=== PATIENT | female | born 1970 | race Caucasian/White ===

== ENCOUNTER 2017-10-03 18:15 | Emergency (ER) | payer OTHER ==
[~2017-10-03] VITALS: Ht 165.1 cm; Wt 84.0 kg
[~2017-10-03 18:15] MED LIST: BUPR150T3 PO; CYCL-36 PO; TRIM
[2017-10-03 18:19] VITALS: BP 174/101; PULSE 95; RESP 16; TEMP 98.3; O2SAT 99
[2017-10-03] MEDS ORDERED: AMLO2.5T PO (18:45)
[2017-10-03] MEDS ORDERED: NALT1TAB3 PO (18:45)
[2017-10-03] MEDS ORDERED: BACL10TA PO (18:45)
--- NOTE | 2017-10-03 18:46 | PD ---
HPI Chief Complaint: Headache Time Seen by Provider: 18:24 Travel History International Travel<30 days: No Contact w/Intl Traveler<30days: No Traveled to known affect area: No History of Present Illness HPI 47-year-old female complains of elevated blood pressure. Patient states that she has history of elevated blood pressure for the past few months. Patient has history of chronic back pain and thought that elbow blood pressure was secondary to that. Patient was seen by personal physician recently and was given prescription for amlodipine, unknown dosage. Patient started taking amlodipine about week and half ago. Patient states that she has dizziness intermittently for the past month however worse for the past 2 days. Patient complains of mild aching headache and anterior chest discomfort for the past month or so. Patient states that the headache and the dizziness and chest discomfort is worse after starting amlodipine. Patient contacted her physician and was advised to take half of dosage of amlodipine for the past 4 days. Patient states that the symptoms got better for the past 4 days. Patient contacted her physician and was advised to stop amlodipine and given prescription for lisinopril 10 mg daily. Patient has not started taking lisinopril yet. Patient states that the chest discomfort is pressure across anterior chest wall. Patient denies any pain radiation. Patient states that she has intermittent palpitation recently however the palpitation is better after she decrease her dosage of amlodipine. Patient denies any diaphoresis. Patient denies history of CAD. Patient denies history of diabetes, hyperlipidemia. Patient states that she has history of chronic back pain and took hydrocodone as needed in the past. PFSH Past Medical History Asthma: Yes Diminished Hearing: No Dilation and Curettage (D&C): Yes Past Surgical History Oral Surgery: Yes Social History Alcohol Use: No Tobacco Use: No Substance Use: No Allergies-Medications (Allergen,Severity, Reaction): Coded Allergies: nitrofurantoin (Verified Allergy, Unknown, 10/03/17) penicillin G (Unverified Allergy, Unknown, does not know, 10/03/17) Reported Meds & Prescriptions Reported Meds & Active Scripts Active Reported Bupropion Hcl Xl (Bupropion HCl) 150 Mg Tab 150 Mg PO DAILY [Trim 10] Flexeril (Cyclobenzaprine HCl) 10 Mg Tab 10 Mg PO TID Review of Systems General / Constitutional: No: Fever Eyes: No: Visual changes HENT: Positive: Headaches, Lightheadedness Cardiovascular: Positive: Chest Pain or Discomfort Respiratory: No: Shortness of Breath Gastrointestinal: No: Abdominal Pain Genitourinary: No: Dysuria Musculoskeletal: No: Pain Skin: No Rash Neurologic: No: Weakness Psychiatric: No: Depression Endocrine: No: Polydipsia Hematologic/Lymphatic: No: Easy Bruising Physical Exam Narrative GENERAL: Well-nourished, well-developed patient. SKIN: Focused skin assessment warm/dry. HEAD: Normocephalic. EYES: No scleral icterus. No injection or drainage. NECK: Supple, trachea midline. No JVD or lymphadenopathy. CARDIOVASCULAR: Regular rate and rhythm without murmurs, gallops, or rubs. RESPIRATORY: Breath sounds equal bilaterally. No accessory muscle use. GASTROINTESTINAL: Abdomen soft, non-tender, nondistended. MUSCULOSKELETAL: No cyanosis, or edema. BACK: Nontender without obvious deformity. No CVA tenderness. Neurologic exam normal. Data Data Last Documented VS Vital Signs Date Time Temp Pulse Resp B/P (MAP) Pulse Ox O2 Delivery O2 Flow Rate FiO2 10/03/17 18:19 98.3 95 16 174/101 (125) 99 MDM Medical Decision Making Medical Screen Exam Complete: Yes Emergency Medical Condition: Yes Differential Diagnosis Differential diagnosis including uncontrolled hypertension, hypertensive urgency , hypertensive crisis, side effect to medications. Narrative Course 47-year-old female with intermittent headache, dizziness, chest pressure, and elevated blood pressure. EKG shows sinus rhythm nonspecific ST-T wave change. Systolic Blood pressure in the 170s range. Diagnosis Primary Impression: Uncontrolled hypertension Patient Instructions: General Instructions Additional Instructions: Take lisinopril as directed. Increase dosage of lisinopril as needed to control blood pressure. Follow-up with personal physician. Return if worse. Med/Other Pt SpecificInfo: No Change to Meds Disposition: 01 DISCHARGE HOME Condition: Stable Bobby Tipton MD Oct 03, 2017 18:46
--- NOTE | 2017-10-04 11:46 | EKG ---
Date Performed: 10/03/2017 Time Performed: 18:27:13 PTAGE: 47 years EKG: Sinus rhythm MINIMAL ST DEPRESSION BORDERLINE ECG Compared to prior tracing no significant change PREVIOUS TRACING : 08/09/2014 09.32 DOCTOR: Junaid Santiago Interpretating Date/Time 10/04/2017 11:46:27
== END 2017-10-03 19:03 | disposition home or self-care (01) ==
LOC: PHED 18:15
DX: I10 Essential (primary) hypertension (principal)
CPT/HCPCS: 93005; 99282